=== PATIENT | female | born 1960 | race Caucasian/White ===

== ENCOUNTER 2023-03-24 17:41 | Emergency (ER) | payer MEDICAID ==
[~2023-03-24] VITALS: Ht 172.7 cm; Wt 81.0 kg
[2023-03-24 17:52] VITALS: BP 126/64; RESP 20; O2SAT 96
[2023-03-24] MEDS ORDERED: SODIUM CHLORIDE 0.9% 500 ML IV ONE (18:00)
[2023-03-24] MEDS ORDERED: ASPirin 325 MG TAB PO ONE (18:00)
[2023-03-24] MEDS ORDERED: NITROGLYCERIN 0.4 MG SL TAB SL ONE (18:00)
[2023-03-24 18:43] VITALS: PULSE 77
[2023-03-24 19:05] LABS: Hemoglobin 13.2 g/dL (12.2-16.2); Mean Corpuscular Hemoglobin 34.6 pg (28.0-32.0); Red Blood Cells 3.82 10^6/uL (4.0-5.20); White Blood Cell 3.4 10^3/uL (4.4-10.8)
[2023-03-24 19:07] LABS: Hematocrit 38.6 % (36.0-46.0); Mean Corpuscular Hgb Conc. 34.3 g/dL (32.0-36.0); Red Cell Distribution Width 12.6 % (11.8-14.3)
[2023-03-24 19:12] LABS: Basophils % (manual) 0 (0.0-2.0); Blast Cells 0; Eosinophils % (manual) 0 (0-7); Metamyelocytes % 0; Myelocytes % 0; Promyelocytes % 0; Reactive Lymphocytes 0
[2023-03-24 19:18] LABS: Alanine Aminotransferase 52 U/L (7-40); Alkaline Phosphatase 87 U/L (46-116); Anion Gap 6 (5-15); BUN/Creatinine Ratio 13.4 (10.0-20.0); Blood Urea Nitrogen 11 mg/dL (9-23); Calcium 9.2 mg/dL (8.7-10.4); Carbon Dioxide 26 mmol/L (20-30); Chloride 103 mmol/L (98-107); Glucose 101 mg/dL (74-106); Potassium 4.5 mmol/L (3.5-5.1); Sodium 135 mmol/L (136-145)
[2023-03-24 19:19] LABS: Aspartate Aminotransferase 30 U/L (13-40)
[2023-03-24 19:20] LABS: Bilirubin, Total 1.1 mg/dL (0.2-1.0); Total Protein 6.3 g/dL (5.7-8.2)
[2023-03-24 19:48] LABS: Band Neutrophils % (manual) 1; Lymphocytes % (manual) 27 (10.0-50.0); Monocytes % (manual) 8 (0-12)
[2023-03-24 19:50] LABS: Platelet Estimate Decreased
== END 2023-03-24 20:43 | disposition left against medical advice (07) ==
LOC: ER 17:41
DX: R07.89 Other chest pain (principal); R11.0 Nausea; Z53.21 Procedure and treatment not carried out due to patient leaving prior to being seen by health care provider
CPT/HCPCS: 36415; 71045; 80053; 83880; 84484; 85007; 85027; 93005